=== PATIENT | female | born 1990 | race Caucasian/White ===

== ENCOUNTER 2017-07-07 22:50 | Inpatient (IN) | payer OTHER ==
[~2017-07-07] VITALS: Ht 157.5 cm; Wt 76.7 kg
[~2017-07-07 22:50] MED LIST: HYDR-3240 PO; SULF1TAB24 PO
[2017-07-07] MEDS ORDERED: ONDANSETRON 2MG/ML, 2ML ONE (23:26)
[2017-07-07] MEDS ORDERED: MORPHINE SULFATE 4 MG/ML, 1ML ONE (23:26)
[2017-07-07] MEDS ORDERED: ONDANSETRON 2MG/ML, 2ML IVPush ONE (23:30)
[2017-07-07] MEDS ORDERED: SODIUM CHLORIDE FLUSH 10ML SYR IVF ONE (23:30)
[2017-07-07] MEDS ORDERED: MORPHINE SULFATE 4 MG/ML, 1ML IVPush ONE (23:30)
[2017-07-07] MEDS ORDERED: SODIUM CHLORIDE 0.9% 1,000ML IVBOLUS ONE (23:30)
[2017-07-07 23:31] LABS: HEMOGLOBIN 13.6 g/dL (11.7-16.4); WHITE BLOOD COUNT 7.7 x10^3/uL (3.4-10)
[2017-07-07 23:42] LABS: ASPARTATE AMINO TRANSFERASE 111 U/L (15-37); BLOOD UREA NITROGEN 7 mg/dL (7-18)
[2017-07-08] MEDS ORDERED: POTASSIUM CHLORIDE 20 MEQ TAB.ER.PRT PO ONE
[2017-07-08] MEDS ORDERED: POTASSIUM CHLORIDE 20 MEQ TAB.ER.PRT ONE (00:12)
[2017-07-08 00:36] LABS: PATH.CAST-FLAG NOT PRESENT; SPERM-FLAG NOT PRESENT; SRC-FLAG NOT PRESENT; XTAL-FLAG NOT PRESENT; YLC-FLAG NOT PRESENT
[2017-07-08] MEDS ORDERED: MAALOX/HYOSCYAMINE/LIDOCAINE 45 ML BTL ONE (00:59)
[2017-07-08] MEDS ORDERED: MAALOX/HYOSCYAMINE/LIDOCAINE 45 ML BTL PO ONE (01:00)
[2017-07-08] MEDS ORDERED: ONDANSETRON 2MG/ML, 2ML ONE (01:09)
[2017-07-08] MEDS ORDERED: MORPHINE SULFATE 4 MG/ML, 1ML ONE (01:09)
[2017-07-08] MEDS ORDERED: MORPHINE SULFATE 4 MG/ML, 1ML IVPush ONE (01:30)
[2017-07-08] MEDS ORDERED: ONDANSETRON 2MG/ML, 2ML IVPush ONE (01:30)
[2017-07-08] MEDS ORDERED: CEFTRIAXONE PMX 1GM/50ML 50 ML ONE (02:24)
[2017-07-08] MEDS ORDERED: CEFTRIAXONE PMX 1GM/50ML 50 ML IV SCH (02:30)
[2017-07-08] MEDS ORDERED: TEMAZEPAM 15 MG CAPSULE PO PRN (03:30)
[2017-07-08] MEDS ORDERED: LABETALOL 5MG/ML, 20ML IVPush PRN (03:30)
[2017-07-08] MEDS ORDERED: ONDANSETRON ODT 4 MG PO PRN (03:30)
[2017-07-08 03:45] VITALS: BP 102/57
[2017-07-08] MEDS: NICOTINE 14MG/24 HR PATCH.TD24 TD SCH (04:17)
[2017-07-08] MEDS: CIPROFLOXACIN/PMX 400MG/200ML 200 ML IV SCH ×2 (04:22→16:43)
[2017-07-08] MEDS: ONDANSETRON 2MG/ML, 2ML IVPush PRN ×2 (04:22→10:01)
[2017-07-08] MEDS: D5%-0.45NACL+KCL 20MEQ 1,000 ML IV SCH ×2 (04:22→21:24)
[2017-07-08] MEDS: morphine SULFATE 10 MG/ML, 1ML IVPush PRN ×6 (04:23→21:24)
[2017-07-08 06:56] LABS: OCCBLD OBC PASS
[2017-07-08 07:25] VITALS: BP 101/51
[2017-07-08] MEDS: FAMOTIDINE 20 MG/2 ML IVPush SCH ×2 (07:44→21:24)
[2017-07-08] MEDS ORDERED: PROMETHAZINE 25 MG/ML, 1ML ONE (11:12)
[2017-07-08] MEDS: PROMETHAZINE 25 MG/ML, 1ML IM PRN ×2 (11:21→18:23)
[2017-07-08 13:55] VITALS: BP 110/70
[2017-07-08 19:35] VITALS: BP 89/57
[2017-07-09] MEDS: CIPROFLOXACIN/PMX 400MG/200ML 200 ML IV SCH ×2 (03:54→15:58)
[2017-07-09] MEDS: PROMETHAZINE 25 MG/ML, 1ML IM PRN ×3 (03:59→20:43)
[2017-07-09] MEDS: morphine SULFATE 10 MG/ML, 1ML IVPush PRN ×5 (04:00→16:44)
[2017-07-09 04:08] VITALS: BP 92/64
[2017-07-09 05:05] LABS: HEMATOCRIT 35.5 % (34.6-47.8); HEMOGLOBIN 11.9 g/dL (11.7-16.4); WHITE BLOOD COUNT 4.6 x10^3/uL (3.4-10)
[2017-07-09 05:12] LABS: BLOOD UREA NITROGEN 2 mg/dL (7-18)
[2017-07-09 05:18] LABS: ASPARTATE AMINO TRANSFERASE 183 U/L (15-37)
[2017-07-09 07:47] VITALS: BP 88/57
[2017-07-09] MEDS: FAMOTIDINE 20 MG/2 ML IVPush SCH ×2 (10:05→20:43)
[2017-07-09] MEDS: NICOTINE 14MG/24 HR PATCH.TD24 TD SCH (10:06)
[2017-07-09] MEDS: D5%-0.45NACL+KCL 20MEQ 1,000 ML IV SCH ×2 (10:06→23:29)
[2017-07-09 12:29] VITALS: BP 98/66
[2017-07-09 14:55] LABS: FERRITIN 166.6 ng/mL (8-252)
[2017-07-09] MEDS: ENOXAPARIN 40 MG/0.4 ML SQ SCH (16:10)
[2017-07-09 19:59] VITALS: BP 95/68
[2017-07-09] MEDS: HYDROmorphone 1 MG/ML, 1ML IV PRN ×2 (20:21→23:29)
[2017-07-10 02:53] VITALS: BP 97/61
[2017-07-10] MEDS: PROMETHAZINE 25 MG/ML, 1ML IM PRN (02:55)
[2017-07-10] MEDS: HYDROmorphone 1 MG/ML, 1ML IV PRN ×2 (02:56→10:35)
[2017-07-10] MEDS: CIPROFLOXACIN/PMX 400MG/200ML 200 ML IV SCH (03:47)
[2017-07-10 06:24] LABS: HEMATOCRIT 38.4 % (34.6-47.8); HEMOGLOBIN 12.8 g/dL (11.7-16.4); WHITE BLOOD COUNT 5.4 x10^3/uL (3.4-10)
[2017-07-10 06:36] LABS: BLOOD UREA NITROGEN 3 mg/dL (7-18)
[2017-07-10 06:41] LABS: ASPARTATE AMINO TRANSFERASE 65 U/L (15-37)
[2017-07-10 08:15] VITALS: BP 104/65
[2017-07-10] MEDS: D5%-0.45NACL+KCL 20MEQ 1,000 ML IV SCH (09:04)
[2017-07-10] MEDS: FAMOTIDINE 20 MG/2 ML IVPush SCH (09:04)
[2017-07-10] MEDS: NICOTINE 14MG/24 HR PATCH.TD24 TD SCH (09:08)
[2017-07-10 14:45] VITALS: BP 102/68
[2017-07-10] MEDS ORDERED: OXYcodone/APAP 5/325MG TABLET PO PRN (15:30)
[2017-07-10] MEDS ORDERED: OXYcodone/APAP 5/325MG TABLET ONE (15:38)
[2017-07-10] MEDS: ENOXAPARIN 40 MG/0.4 ML SQ SCH (17:33)
[2017-07-10 19:58] VITALS: BP 112/74
[2017-07-10] MEDS: FAMOTIDINE 20 MG TABLET PO SCH (20:39)
[2017-07-10] MEDS: OXYcodone IR 5MG TABLET PO PRN (20:39)
[2017-07-11] MEDS: OXYcodone IR 5MG TABLET PO PRN ×3 (00:55→09:16)
[2017-07-11 02:42] VITALS: BP 102/66
[2017-07-11 06:03] LABS: BLOOD UREA NITROGEN 5 mg/dL (7-18)
[2017-07-11 06:06] LABS: ASPARTATE AMINO TRANSFERASE 37 U/L (15-37)
[2017-07-11] MEDS: FAMOTIDINE 20 MG TABLET PO SCH (08:49)
[2017-07-11] MEDS: NICOTINE 14MG/24 HR PATCH.TD24 TD SCH (08:51)
[2017-07-11 09:00] VITALS: BP 109/74
[2017-07-11 17:22] LABS: HELICOBACTER PYLORI IGG <0.4 U/mL (0.0-0.8); HELICOBACTER PYLORI IGM <9.0 units (0.0-8.9)
[2017-07-11 17:27] LABS: ANA SCREEN POSITIVE (Negative)
[2017-07-12 12:06] LABS: DEAMIDATED GLIADIN IGA 2 units (0-19); IMMUNOGLOBULIN A 121 mg/dL (87-352)
== END 2017-07-11 09:31 | disposition home or self-care (01) | DRG 392 ==
LOC: ED 07-08 00:23 → EDIP 07-08 02:14 → 4NOR 07-08 02:46 → DCLOUNGE 07-11 09:20
PROVIDERS: ADMIT Internal Medicine; ATTEND Family Medicine
DX: A08.4 Viral intestinal infection, unspecified (principal); N39.0 Urinary tract infection, site not specified; B15.9 Hepatitis A without hepatic coma; E86.0 Dehydration; E87.6 Hypokalemia; F17.210 Nicotine dependence, cigarettes, uncomplicated; J45.909 Unspecified asthma, uncomplicated; B27.99 Infectious mononucleosis, unspecified with other complication; K21.9 Gastro-esophageal reflux disease without esophagitis; Z90.49 Acquired absence of other specified parts of digestive tract
CPT/HCPCS: 36415; 74000; 76700; 80053; 80307; 81001; 82103; 82272; 82390; 82728; 82784; 83010; 83516; 83540; 83550; 83615; 83690; 83735; 84100; 84703; 85025; 85610; 86038; 86039; 86644; 86645; 86663; 86664; 86665; 86677; 86704; 86705; 86706; 86708; 86709; 86790; 86803; 87046; 87086; 87324; 87340; 87491; 87591; 87899; 89055; 96361; 96365; 96375; J0696; J0744; J1170; J1650; J2405; J2550; Q0162; J2270; J3480; J7030; S0028

== ENCOUNTER 2017-09-16 14:20 | Emergency (ER) | payer OTHER ==
[~2017-09-16] VITALS: Ht 157.5 cm; Wt 75.0 kg
[2017-09-16] MEDS ORDERED: SODIUM CHLORIDE FLUSH 10ML SYR IVF ONE (15:00)
[2017-09-16] MEDS ORDERED: ONDANSETRON 2MG/ML, 2ML IVPush ONE (15:00)
[2017-09-16] MEDS ORDERED: SODIUM CHLORIDE 0.9% 1,000ML IVBOLUS ONE (15:00)
[2017-09-16 15:17] LABS: HEMATOCRIT 44.4 % (34.6-47.8); HEMOGLOBIN 15.1 g/dL (11.7-16.4); WHITE BLOOD COUNT 10.7 x10^3/uL (3.4-10)
[2017-09-16 15:30] LABS: ASPARTATE AMINO TRANSFERASE 8 U/L (15-37); BLOOD UREA NITROGEN 8 mg/dL (7-18)
[2017-09-16 17:21] VITALS: BP 111/75
== END 2017-09-16 19:16 | disposition left against medical advice (07) ==
LOC: ED 19:10
DX: O21.0 Mild hyperemesis gravidarum (principal); Z90.49 Acquired absence of other specified parts of digestive tract; Z3A.01 Less than 8 weeks gestation of pregnancy
CPT/HCPCS: 36415; 76801; 80053; 81001; 83690; 84702; 85025; 87086; 99285

== ENCOUNTER 2017-10-17 20:48 | Emergency (ER) | payer OTHER ==
[~2017-10-17] VITALS: Ht 157.5 cm; Wt 76.6 kg
[2017-10-17] MEDS ORDERED: PREN1TAB62 PO (21:07)
[2017-10-17 21:42] LABS: HEMATOCRIT 36.4 % (34.6-47.8); HEMOGLOBIN 12.5 g/dL (11.7-16.4); WHITE BLOOD COUNT 10.9 x10^3/uL (3.4-10)
[2017-10-17 21:51] LABS: BLOOD UREA NITROGEN 10 mg/dL (7-18)
[2017-10-17 22:44] VITALS: BP 101/56
== END 2017-10-17 22:46 | disposition home or self-care (01) ==
LOC: ED 21:42
DX: O26.891 Other specified pregnancy related conditions, first trimester (principal); Z3A.11 11 weeks gestation of pregnancy; N89.8 Other specified noninflammatory disorders of vagina; Z87.891 Personal history of nicotine dependence; Z90.49 Acquired absence of other specified parts of digestive tract; Z98.890 Other specified postprocedural states
CPT/HCPCS: 36415; 76801; 80048; 81003; 82040; 84702; 85025; 86901; 99285

== ENCOUNTER 2017-12-30 10:28 | Outpatient (CLI) | payer SELFPAY ==
[~2017-12-30 10:28] MED LIST changes: +PREN1TAB62 PO
[2017-12-30 11:25] LABS: AMNISURE NEGATIVE (NEGATIVE)
[2017-12-30 11:36] VITALS: BP 124/62
[2017-12-30 11:46] LABS: MICROSCOPIC INDICATED
[2017-12-30 11:51] LABS: CLUE CELLS NONE SEEN (NONE SEEN); WET PREP WBCS FEW (FEW)
== END 2017-12-30 12:27 | disposition home or self-care (01) ==
LOC: LDOP 10:28
PROVIDERS: ATTEND Obstetrics & Gynecology
DX: O42.912 Preterm premature rupture of membranes, unspecified as to length of time between rupture and onset of labor, second trimester (principal); Z3A.22 22 weeks gestation of pregnancy
CPT/HCPCS: 59025; 81001; 84112; 87086; 87210; 87808; 99201; G0463

== ENCOUNTER 2018-10-17 22:00 | Emergency (ER) | payer BC ==
[~2018-10-17] VITALS: Ht 157.5 cm; Wt 83.6 kg
[2018-10-17 22:40] LABS: MICROSCOPIC INDICATED
[2018-10-17 22:54] LABS: CULTURE INDICATED? YES
[2018-10-17 23:03] LABS: BASOPHILS # (AUTO) 0.05 x10^3/uL (0-0.1); BASOPHILS % (AUTO) 1 % (0-1); EOSINOPHILS # (AUTO) 0.14 x10^3/uL (0-0.4); EOSINOPHILS % (AUTO) 2 % (1-7); LYMPHOCYTES % (AUTO) 24 % (22-44); MD NO; MEAN CORPUSCULAR HEMOGLOBIN 30.6 pg (27.0-34.8); MEAN CORPUSCULAR HGB CONC 34.1 g/dL (32.4-35.8); MEAN CORPUSCULAR VOLUME 89.6 fL (80-100); MEAN PLATELET VOLUME 9.2 fL (7.4-10.4); MONOCYTES # (AUTO) 0.57 x10^3/uL (0.2-0.8); MONOCYTES % (AUTO) 6 % (2-9); NEUTROPHILS # (AUTO) 6.44 x10^3/uL (1.8-6.8); NEUTROPHILS % (AUTO) 68 % (42-75); PLATELET COUNT 302 x10^3/uL (130-400); RED CELL DISTRIBUTION WIDTH 12.8 % (9.6-15.2)
[2018-10-17 23:09] LABS: ALANINE AMINOTRANSFERASE 21 U/L (12-78); ALBUMIN 3.6 g/dL (3.4-5.0); ANION GAP 5 mmol/L (5-15); CALCIUM 8.6 mg/dL (8.5-10.1); CHLORIDE 110 mmol/L (98-107); CREATININE 0.76 mg/dL (0.55-1.02)
[2018-10-17 23:14] LABS: ALKALINE PHOSPHATASE 87 U/L (45-117); BILIRUBIN,TOTAL 0.3 mg/dL (0.2-1.0); TOTAL PROTEIN 7.6 g/dL (6.4-8.2)
[2018-10-17 23:20] LABS: INTERNATIONAL NORMALIZED RATIO 0.94 (0.93-1.1)
[2018-10-17] MEDS ORDERED: ONDANSETRON ODT 4 MG PO ONE (23:30)
[2018-10-17] MEDS ORDERED: HYDROcodone/APAP 5/325 TABLET PO ONE (23:30)
[2018-10-17] MEDS ORDERED: ONDANSETRON ODT 4 MG ONE (23:38)
[2018-10-17] MEDS ORDERED: HYDROcodone/APAP 5/325 TABLET ONE (23:38)
[2018-10-17 23:41] VITALS: BP 113/66
== END 2018-10-18 00:27 | disposition home or self-care (01) ==
LOC: ED 22:44
DX: R10.31 Right lower quadrant pain (principal); R11.2 Nausea with vomiting, unspecified; N93.9 Abnormal uterine and vaginal bleeding, unspecified
CPT/HCPCS: 36415; 76830; 80053; 81001; 84703; 85025; 85610; 85730; 87086; 99284; Q0162

== ENCOUNTER 2019-03-03 12:49 | Emergency (ER) | payer BC ==
[~2019-03-03] VITALS: Ht 157.5 cm; Wt 86.5 kg
[2019-03-03] MEDS ORDERED: SODIUM CHLORIDE FLUSH 10ML SYR IVF ONE (13:30)
[2019-03-03 13:58] LABS: BASOPHILS # (AUTO) 0.09 x10^3/uL (0-0.1); BASOPHILS % (AUTO) 1 % (0-1); EOSINOPHILS % (AUTO) 1 % (1-7); LYMPHOCYTES # (AUTO) 1.74 x10^3/uL (1-3.4); LYMPHOCYTES % (AUTO) 23 % (22-44); MD NO; MEAN CORPUSCULAR HEMOGLOBIN 30.1 pg (27.0-34.8); MEAN CORPUSCULAR VOLUME 88.6 fL (80-100); MEAN PLATELET VOLUME 9.1 fL (7.4-10.4); MONOCYTES # (AUTO) 0.48 x10^3/uL (0.2-0.8); MONOCYTES % (AUTO) 6 % (2-9); NEUTROPHILS # (AUTO) 5.13 x10^3/uL (1.8-6.8); NEUTROPHILS % (AUTO) 68 % (42-75); PLATELET COUNT 290 x10^3/uL (130-400); RED BLOOD COUNT 4.69 x10^6/uL (3.82-5.3); RED CELL DISTRIBUTION WIDTH 13.3 % (9.6-15.2)
[2019-03-03 14:11] LABS: CHLORIDE 110 mmol/L (98-107)
[2019-03-03 14:12] LABS: ALBUMIN 3.6 g/dL (3.4-5.0); ANION GAP 4 mmol/L (5-15); CALCIUM 8.7 mg/dL (8.5-10.1)
[2019-03-03 14:18] LABS: ALANINE AMINOTRANSFERASE 19 U/L (12-78); ALKALINE PHOSPHATASE 79 U/L (45-117); BILIRUBIN,TOTAL 0.4 mg/dL (0.2-1.0); CREATININE 0.78 mg/dL (0.55-1.02); TOTAL PROTEIN 7.2 g/dL (6.4-8.2)
[2019-03-03 15:49] VITALS: BP 138/88
--- NOTE | 2019-03-03 17:09 | NUR ---
PT TO ROOM FROM LOBBY.
[2019-03-03] MEDS ORDERED: IBUPROFEN 200 MG TABLET PO ONE (17:30)
[2019-03-03] MEDS ORDERED: ONDANSETRON ODT 4 MG PO ONE (17:30)
[2019-03-03] MEDS ORDERED: ONDANSETRON ODT 4 MG ONE (17:44)
[2019-03-03] MEDS ORDERED: IBUPROFEN 600 MG TABLET ONE (17:44)
[2019-03-03 18:01] LABS: HCG UR SG 1.025 (1.003-1.030); MICROSCOPIC AUTO
[2019-03-03 18:05] LABS: CULTURE INDICATED? YES
[2019-03-03] MEDS ORDERED: LIDOCAINE-MPF 1%, 2ML ONE (18:52)
[2019-03-03] MEDS ORDERED: CEFTRIAXONE 1,000 MG ONE (18:52)
[2019-03-03] MEDS ORDERED: CEFTRIAXONE 1,000 MG IM ONE (19:00)
== END 2019-03-03 19:03 | disposition home or self-care (01) ==
LOC: ED 18:50
DX: N10 Acute pyelonephritis (principal); Z90.49 Acquired absence of other specified parts of digestive tract
CPT/HCPCS: 36415; 80053; 81001; 81025; 83690; 85025; 87086; 96372; 99283; J0696; Q0162

== ENCOUNTER 2021-07-12 10:23 | Emergency (ER) | payer BC ==
[~2021-07-12] VITALS: Ht 157.5 cm; Wt 91.1 kg
[~2021-07-12 10:23] MED LIST changes: +HYDR-2214 PO; -HYDR-3240 PO; +SULF-23 PO; -SULF1TAB24 PO
--- NOTE | 2021-07-12 10:59 | NUR ---
PT AMBULATES WELL TO BATHROOM FOR UA SPECIMEN COLLECTION INDEPENDENTLY. NAD NOTED AT THIS TIME.
[2021-07-12] MEDS ORDERED: FAMOTIDINE 20 MG/2 ML ONE (11:12)
[2021-07-12] MEDS ORDERED: ONDANSETRON 2MG/ML, 2ML ONE (11:12)
[2021-07-12] MEDS ORDERED: MORPHINE SULFATE 4 MG/ML, 1ML ONE ×2 (11:12→12:27)
[2021-07-12 11:23] LABS: MICROSCOPIC NOT IND
[2021-07-12] MEDS: MORPHINE SULFATE 4 MG/ML, 1ML IVPush PRN ×2 (11:24→12:29)
[2021-07-12] MEDS ORDERED: SODIUM CHLORIDE FLUSH 10ML SYR IVF ONE (12:00)
[2021-07-12] MEDS ORDERED: FAMOTIDINE 20 MG/2 ML IVPush ONE (12:00)
[2021-07-12] MEDS ORDERED: ONDANSETRON 2MG/ML, 2ML IVPush ONE (12:00)
[2021-07-12] MEDS ORDERED: SODIUM CHLORIDE 0.9% 1,000ML IVBOLUS ONE (12:00)
[2021-07-12 12:05] LABS: BASOPHILS % (AUTO) 0 % (0-1); EOSINOPHILS % (AUTO) 1 % (1-7); LYMPHOCYTES % (AUTO) 20 % (22-44); MEAN CORPUSCULAR HEMOGLOBIN 30.1 pg (27.0-34.8); MEAN CORPUSCULAR HGB CONC 33.9 g/dL (32.4-35.8); MEAN PLATELET VOLUME 8.9 fL (7.4-10.4); MONOCYTES % (AUTO) 5 % (2-9); NEUTROPHILS % (AUTO) 73 % (42-75); PLATELET COUNT 281 x10^3/uL (130-400); RED BLOOD COUNT 4.57 x10^6/uL (3.82-5.3); RED CELL DISTRIBUTION WIDTH 13.9 % (9.6-15.2)
[2021-07-12 12:21] LABS: ALANINE AMINOTRANSFERASE 63 U/L (12-78); ALBUMIN 3.3 g/dL (3.4-5.0); ANION GAP 5 mmol/L (5-15); CHLORIDE 110 mmol/L (98-107); CREATININE 0.68 mg/dL (0.55-1.02)
[2021-07-12 12:26] LABS: ALKALINE PHOSPHATASE 74 U/L (45-117); BILIRUBIN,TOTAL 0.5 mg/dL (0.2-1.0); TOTAL PROTEIN 7.2 g/dL (6.4-8.2)
--- NOTE | 2021-07-12 12:30 | NUR ---
PT REMEDICATED WITH SECOND ORDERED DOSE FOR INCREASED/RETURNING PAIN. NAD NOTED IN PT AT THIS TIME. RESPIRATIONS EVEN AND UNLABORED ON RA. PT SITTING UP USING CELL PHONE. SIDE RAILS UP, CALL LIGHT IN REACH.
--- NOTE | 2021-07-12 13:22 | NUR ---
CHART UP FOR RECHECK. PT SITTING UP IN BED USING CELL PHONE. NAD NOTED AT THIS TIME. ADDITIONAL BLANKET APPLIED FOR PT COMFORT.
[2021-07-12 14:07] VITALS: BP 122/64
[2021-07-12] MEDS ORDERED: DICYCLOMINE 10 MG/ML, 2ML IM ONE (15:00)
== END 2021-07-12 14:10 | disposition home or self-care (01) ==
LOC: ED 10:54
DX: R10.32 Left lower quadrant pain (principal); R10.11 Right upper quadrant pain; R11.2 Nausea with vomiting, unspecified; Z90.89 Acquired absence of other organs; Z90.49 Acquired absence of other specified parts of digestive tract; Z87.891 Personal history of nicotine dependence
CPT/HCPCS: 36415; 74177; 80053; 81003; 83690; 84703; 85025; 93005; 96361; 96374; 96375; 96376; 99285; J2270; J2405; J7030